=== PATIENT | female | born 1985 | race African-American/Black ===

== ENCOUNTER 2016-11-07 08:16 | Emergency (ER) | payer OTHER ==
[~2016-11-07] VITALS: Ht 149.9 cm; Wt 59.0 kg
[~2016-11-07 08:16] MED LIST: A.E.R PADS1 JAR TOP; APAP500 PO; AUGMENTIN 875-1 EACH PO; AUGMENTIN 875875 MG PO; BACTRIM DS TAB1 EAC1 PO; BUPROPION XL300 MG PO; BUTALB-APAP-CA1 EACH; CARISOPRODOL 3350 MG PO; CEPHALEXIN; COLACE 100 MG100 MG PO; DARVOCET-N 1001 EACH PO; DERMOPLAST SPRA56 ML TOP; DICLEGIS DR 101 EACH PO; HYDROCODON-ACE1 EAC7 PO; HYDROCODONE-AP1 EAC6 PO; HYDROCORTISONE30 G4 TOP; HYDROXYZINE HCL25 M1 PO; IBUPROFEN 600600 M1 PO; IRON325 PO; LABETALOL HCL200 MG PO; LAMICTAL100 MG PO; LANOLIN56 GM; LOESTRIN1 EAC1; MACROBID 100 M100 M1 PO; NORCO 5-325 TA1 EACH PO; ONDANSETRON HCL4 M2 PO; RANITIDINE 150150 M1 PO; SPRINTEC1 EACH PO; TRAMADOL 50 MG50 MG PO; TRAZODONE HCL50 MG PO; TRINATE TABLET1 TAB PO; TUMS PO; TYLENOL325 MG PO; ULTRAM 50MG TAB50 MG PO; VALTREX 500 MG500 M1 PO; VICODIN; WELLBUTRIN SR150 MG PO; WELLBUTRIN75 MG PO; ZOFRAN ODT4 MG PO; ZOFRAN4 MG PO
[2016-11-07 08:59] LABS: ABSOLUTE NEUTROPHILS 3.6 thou/uL (1.4-8.2); BASOPHILS 0.3 % (0.0-2.0); EOSINOPHILS 0.7 % (0.0-3.0); HEMATOCRIT 40.6 % (37.0-47.0); HEMOGLOBIN 13.5 gm/dL (12.0-15.0); MCH 29.1 pg (26.0-34.0); MCHC 33.2 g/dL (28.0-37.0); MCV 87.6 fL (80.0-100.0); MONOCYTES 8.8 % (1.0-8.0); PLATELET COUNT 240 thou/uL (150-400); POLYS 56.2 % (36.0-66.0); RBC 4.64 mil/uL (4.20-5.00); RDW 13.1 % (10.5-14.5); WBC 6.4 thou/uL (4.0-11.0)
[2016-11-07 09:00] LABS: MANUAL DIFF NO
[2016-11-07 09:03] LABS: URINE BILIRUBIN NEGATIVE (Negative); URINE BLOOD TRACE (Negative); URINE COLOR YELLOW; URINE GLUCOSE-RANDOM* NEGATIVE (Negative); URINE KETONES NEGATIVE (Negative); URINE LEUKOCYTES-REFLEX 2+ (Negative); URINE PROTEIN (DIPSTICK) NEGATIVE (Negative); URINE UROBILINOGEN 0.2 E.U./dl (0.2-1.0)
[2016-11-07 09:07] LABS: CALCIUM 10.4 mg/dL (8.5-10.1); CREATININE 0.7 mg/dL (0.6-1.0); POTASSIUM 3.6 mmol/L (3.5-5.1)
[2016-11-07 09:14] LABS: SQUAMOUS >10 Many /LPF (0-3)
[2016-11-07 09:15] LABS: CASTS None Seen /LPF (None Seen); CRYSTALS None Seen /LPF (None Seen); URINE RBC 0-2 Rare /HPF (0-2); URINE WBC-REFLEX 6-15 Few /HPF (0-5)
[2016-11-07] MEDS ORDERED: MACROBID 100 M100 M1 PO (10:30)
[2016-11-07] MEDS ORDERED: FLAGYL500 MG PO (10:30)
[2016-11-07] MEDS ORDERED: DICLEGIS DR 101 EACH PO (10:30)
== END 2016-11-07 11:43 | disposition home or self-care (01) ==
LOC: ER 08:16
PROVIDERS: Emergency Medicine
DX: O23.41 Unspecified infection of urinary tract in pregnancy, first trimester (principal); A59.9 Trichomoniasis, unspecified; Z3A.08 8 weeks gestation of pregnancy; F31.9 Bipolar disorder, unspecified; Z87.442 Personal history of urinary calculi; Z86.2 Personal history of diseases of the blood and blood-forming organs and certain disorders involving the immune mechanism; Z90.89 Acquired absence of other organs; Z88.1 Allergy status to other antibiotic agents

== ENCOUNTER 2016-11-14 07:22 | Emergency (ER) | payer OTHER ==
[~2016-11-14] VITALS: Ht 149.9 cm; Wt 59.0 kg
[~2016-11-14 07:22] MED LIST changes: +FLAGYL500 MG PO
[2016-11-14 08:28] LABS: URINE BILIRUBIN NEGATIVE (Negative); URINE BLOOD TRACE (Negative); URINE COLOR YELLOW; URINE GLUCOSE-RANDOM* NEGATIVE (Negative); URINE KETONES 1+ (Negative); URINE NITRITE NEGATIVE (Negative); URINE PROTEIN (DIPSTICK) NEGATIVE (Negative); URINE UROBILINOGEN 0.2 E.U./dl (0.2-1.0)
[2016-11-14 08:43] LABS: SQUAMOUS 4-10 Moderate /LPF (0-3)
[2016-11-14 08:44] LABS: AMORPHOUS URATES Moderate /LPF (None Seen); CASTS None Seen /LPF (None Seen); URINE RBC 0-2 Rare /HPF (0-2); URINE WBC 6-15 Few /HPF (0-5)
[2016-11-14] MEDS ORDERED: ZOFRAN ODT8 MG PO (09:11)
== END 2016-11-14 10:12 | disposition home or self-care (01) ==
LOC: ER 07:22
PROVIDERS: Emergency Medicine
DX: O21.0 Mild hyperemesis gravidarum (principal); O23.41 Unspecified infection of urinary tract in pregnancy, first trimester; Z3A.09 9 weeks gestation of pregnancy; C45.9 Mesothelioma, unspecified; Z86.2 Personal history of diseases of the blood and blood-forming organs and certain disorders involving the immune mechanism; Z90.89 Acquired absence of other organs; M47.9 Spondylosis, unspecified; Z88.1 Allergy status to other antibiotic agents

== ENCOUNTER 2016-12-12 17:08 | Emergency (ER) | payer OTHER ==
[~2016-12-12] VITALS: Ht 149.9 cm; Wt 59.0 kg
[~2016-12-12 17:08] MED LIST changes: +ZOFRAN ODT8 MG PO
[2016-12-12 17:57] LABS: URINE BILIRUBIN NEGATIVE (Negative); URINE BLOOD NEGATIVE (Negative); URINE COLOR YELLOW; URINE GLUCOSE-RANDOM* NEGATIVE (Negative); URINE KETONES NEGATIVE (Negative); URINE NITRITE NEGATIVE (Negative); URINE PROTEIN (DIPSTICK) NEGATIVE (Negative); URINE SPECIFIC GRAVITY 1.015 (1.003-1.035); URINE UROBILINOGEN 0.2 E.U./dl (0.2-1.0)
[2016-12-13 21:11] LABS: CHLAMYDIA TRACHOMATIS-PCR Negative (Negative); NEISSERIA GONORRHEA-PCR Negative (Negative)
== END 2016-12-12 18:58 | disposition home or self-care (01) ==
LOC: ER 17:08
PROVIDERS: Physician Assistant
DX: N89.8 Other specified noninflammatory disorders of vagina (principal); F31.81 Bipolar II disorder; Z90.89 Acquired absence of other organs; Z86.2 Personal history of diseases of the blood and blood-forming organs and certain disorders involving the immune mechanism; Z88.1 Allergy status to other antibiotic agents